=== PATIENT | male | born 1965 | race Hispanic/Latino ===

== ENCOUNTER → 2018-01-29 | Outpatient (CLI) | payer BC ==
--- NOTE | 2018-01-29 15:08 | Diagnostic Imaging Report ---
PROCEDURE:EXTREMITY ULTRASOUND COMPARISON:None. INDICATIONS:Possible soft tissue mass. TECHNIQUE:De La Garza scale color Doppler ultrasound within the region of interest FINDINGS: See conclusion. CONCLUSION: Ultrasound within the region of interest over the right posterior shoulder demonstrates an avascular 3.6 x 0.1 x 3.2 cm nodular region of fat without a definite capsule, in keeping with an underlying lipoma. Regional structures are otherwise normal. Dictated by: Schuyler Mueller M.D. on 01/29/2018 at 15:11 Electronically approved by: Schuyler Mueller M.D. on 01/29/2018 at 15:11
== END ==
LOC: US 13:59
PROVIDERS: ATTEND Family Medicine
DX: M79.9 Soft tissue disorder, unspecified (principal)
CPT/HCPCS: 76882